=== PATIENT | female | born 2000 | race Caucasian/White ===

== ENCOUNTER 2023-07-06 21:18 | Emergency (ER) | payer MEDICAID ==
[~2023-07-06] VITALS: Ht 162.6 cm; Wt 64.0 kg
[2023-07-06 21:34] VITALS: BP 101/71; PULSE 94; RESP 18; TEMP 98.4; O2SAT 98
== END 2023-07-07 00:58 | disposition home or self-care (01) ==
LOC: ER 21:30
DX: R07.89 Other chest pain (principal); F41.9 Anxiety disorder, unspecified
CPT/HCPCS: 29125; 93005; 99283